=== PATIENT | female | born 1985 ===

== ENCOUNTER → 2018-02-20 | Outpatient (CLI) | payer OTHER ==
[~2018-02-20] MED LIST: DOXY-252 PO; FLUT16SP19 NS; HYDR-4309 PO; IBUP200C74 PO; IBUP800T37 PO; PROG200C16 VA; TRAM-420 PO
== END ==
LOC: LAB 11:15
PROVIDERS: ATTEND Student in an Organized Health Care Education/Training Program
DX: O09.299 Supervision of pregnancy with other poor reproductive or obstetric history, unspecified trimester (principal)
CPT/HCPCS: 36415; 84443; 84702

== ENCOUNTER → 2018-02-22 | Outpatient (CLI) | payer OTHER | LOC: LAB 10:16 | PROVIDERS: ATTEND Student in an Organized Health Care Education/Training Program | DX: Z34.91 Encounter for supervision of normal pregnancy, unspecified, first trimester (principal) | CPT/HCPCS: 36415; 84702 ==

== ENCOUNTER → 2018-02-24 | Outpatient (CLI) | payer OTHER | LOC: LAB 14:29 | PROVIDERS: ATTEND Student in an Organized Health Care Education/Training Program | DX: N96 Recurrent pregnancy loss (principal) | CPT/HCPCS: 36415; 84144 ==

== ENCOUNTER → 2018-03-03 | Outpatient (CLI) | payer OTHER ==
[~2018-03-03] MED LIST changes: -HYDR-4309 PO; +HYDR-653 PO
== END ==
LOC: LAB 14:12
PROVIDERS: ATTEND Student in an Organized Health Care Education/Training Program
DX: O20.0 Threatened abortion (principal)
CPT/HCPCS: 36415; 84702

== ENCOUNTER → 2018-03-05 | Outpatient (CLI) | payer OTHER | LOC: LAB 11:29 | PROVIDERS: ATTEND Student in an Organized Health Care Education/Training Program | DX: O20.0 Threatened abortion (principal) | CPT/HCPCS: 36415; 84702 ==

== ENCOUNTER → 2018-03-25 | Outpatient (CLI) | payer OTHER ==
[~2018-03-25] MED LIST changes: +CHOL400C10 PO; +LEVO88TA43 PO
== END ==
LOC: LAB 09:01
PROVIDERS: ATTEND Student in an Organized Health Care Education/Training Program
DX: Z02.9 Encounter for administrative examinations, unspecified (principal)

== ENCOUNTER → 2018-04-03 | Outpatient (CLI) | payer OTHER ==
[2018-04-03 17:15] LABS: PLATELET COUNT, AUTOMATED 275 K/uL (150-450)
== END ==
LOC: LAB 16:14
PROVIDERS: ATTEND Student in an Organized Health Care Education/Training Program
DX: Z34.01 Encounter for supervision of normal first pregnancy, first trimester (principal)
CPT/HCPCS: 36415; 81001; 85025; 86592; 86644; 86645; 86762; 86850; 86900; 86901; 87077; 87088; 87186; 87340; 87491; 87591

== ENCOUNTER → 2018-06-16 | Outpatient (CLI) | payer OTHER ==
[~2018-06-16] MED LIST changes: +CA C1TAB3 PO; +LEVO-3 PO; +NITR-105 PO; +PREN-148
--- NOTE | 2018-06-16 11:46 | RADIOLOGY IMAGING REPORT ---
FACILITY: [facility] [place] PATIENT NAME: Yaneth Hernandes : 1985 MR: [id number] V: [id number] EXAM DATE: ORDERING PHYSICIAN: BINU EVANS TECHNOLOGIST: Location: [facility] Patient: Yaneth Hernandes : 1985 Visit/Account:[id number] Date of Sevice: 06/16/2018 [facility] OB ANATOMICAL SURVEY HISTORY: Anatomic survey COMPARISON: None. TECHNIQUE: Transabdominal imaging was performed for assessment of the fetus and maternal pelvic s tructures. Transvaginal imaging was not performed. FINDINGS: Intrauterine gestations: One. presentation: Breech with head towards the maternal left. heart rate: 152 bpm. Amniotic fluid volume: Normal; MARI 14.36 cm; MVP 4 cm. Placenta: Posterior and fundal. Uterus: Gravid, otherwise grossly unremarkable where visualized. Maternal adnexa/ovaries: Grossly unremarkable, ovaries not visualized. Cervix: Grossly long and closed. Gestational Parameters: BPD: 4.76 cm, 67th percentile HC: 17.7 cm, 51st percentile AC: 16.33 cm, 86th percentile FL: 3.37 cm, 63rd percentile Average ultrasound age (AUA): 20 weeks/ five days Estimated age based on LMP: 20 weeks/ zero days Estimated weight (EFW): 386 grams +/- 57 grams equals the 91st percentile Anatomic Survey: Intracranial structures, 4-chamber heart, stomach, kidneys, urinary bladder, spine, 3-vessel cord and cord insertion are unremarkable. Two upper and two lower extremities visualized. IMPRESSION: Single viable fetus in breech presentation with an estimated gestational age by measurements of 20 we eks and five days. Estimated gestational age by LMP is 20 weeks and zero days Estimated weight is 386 g equivalent to the 91st percentile Report Dictated By: Minnie Bernstein MD at 06/16/2018 11:37 AM Report E-Signed By: Minnie Bernstein MD at 06/16/2018 11:41 AM WSN:[email or web address]
== END ==
LOC: RAD 09:32
PROVIDERS: ATTEND Student in an Organized Health Care Education/Training Program
DX: Z02.9 Encounter for administrative examinations, unspecified (principal)

== ENCOUNTER → 2018-07-15 | Outpatient (CLI) | payer OTHER | LOC: LAB 15:07 | PROVIDERS: ATTEND Student in an Organized Health Care Education/Training Program | DX: O99.280 Endocrine, nutritional and metabolic diseases complicating pregnancy, unspecified trimester (principal); E03.9 Hypothyroidism, unspecified | CPT/HCPCS: 36415; 84443 ==

== ENCOUNTER → 2018-08-14 | Outpatient (CLI) | payer OTHER ==
[~2018-08-14] MED LIST changes: +HYDR28.33 TOP
[2018-08-14 23:59] LABS: PLATELET COUNT, AUTOMATED 311 K/uL (150-450)
== END ==
LOC: LAB 15:23
PROVIDERS: ATTEND Advanced Practice Midwife
DX: Z34.82 Encounter for supervision of other normal pregnancy, second trimester (principal)
CPT/HCPCS: 36415; 82950; 84443; 85025

== ENCOUNTER → 2018-08-30 | Outpatient (CLI) | payer OTHER ==
[~2018-08-30] MED LIST changes: +BLOO-1511 MC; +BLOO-960 MC; +LANC-165
== END ==
LOC: LAB 08:34
PROVIDERS: ATTEND Advanced Practice Midwife
DX: O99.810 Abnormal glucose complicating pregnancy (principal)
CPT/HCPCS: 36415; 82951; 82952

== ENCOUNTER 2018-09-02 15:19 | Outpatient (RCR) | payer OTHER ==
[~2018-09-02] VITALS: Ht 170.2 cm; Wt 78.5 kg
--- NOTE | 2018-09-04 13:17 | Medical Nutrition Therapy ---
Nutrition Anthropometrics Height (Inches): 67 Weight (Pounds): 173 (31 weekspre-DM 146#) Omar Nutrition Score: Omar Nutrition Risk Score: Dietary Referral Nutrition Risk Factors: Nutrition Risk Comment: Nutrition/Food History Breakfast: fruit, granola, oat, seets/nuts or bread, egg, meat, fruit Lunch: burrito wraps with meat, cheed, veg, fuit Dinner: meat, veg, CHO Snacks: chocolat, nuts, cheees sticks Nutritional Education Nutrition Education Topic: Diabetic Nutrition Learning Readiness: Interested Teaching Methods: Discussion, Handout, Demonstration Response to Teaching: Verbalize understanding Teaching Recipient: Patient, Significant Other Nutrition Counselin/18 late entry for 16:00 @ 16:30 Pt and attended session. Pt has family hx of DM. Reviewed what is gest DM, demonstrated glucomerter and obtained BG. pt had Bg 90 @ 16:30. Reviewed diet. Pt states they try to eat healthy and follow mediterrainan diet. Reviewed Action of CHO, protein and fat. Enouraged pt to consume adequate CHO and provided meal plan of 45gm CHO/meal with 5 gm PM and hs snacks. Pt refused f/u sesson. Will provide f/u phone call for any questions or conterns. Nutrition Monitoring & Eval RD Patient Assessment Time: [address] Assessment Type: RD Education Nutritional Comment: Provided 60 minute diabetes eduction focusing on gest DM, glucometer, and nutrition Copies To Copies to: BINU EVANS DO ; JOSUE GRUBER Sep 04, 2018 13:17
[2018-09-09] MEDS ORDERED: DIPH0.5S2 IM (08:21)
[2018-09-19] MEDS ORDERED: BLOO-1511 MC (09:45)
== END 2018-10-01 12:26 | disposition home or self-care (01) ==
LOC: DIET 15:19
PROVIDERS: ATTEND Advanced Practice Midwife
DX: O24.419 Gestational diabetes mellitus in pregnancy, unspecified control (principal); Z3A.31 31 weeks gestation of pregnancy; Z71.3 Dietary counseling and surveillance
CPT/HCPCS: G0108 ×2

== ENCOUNTER → 2018-09-11 | Outpatient (CLI) | payer OTHER ==
[~2018-09-11] MED LIST changes: +DIPH0.5S2 IM
--- NOTE | 2018-09-11 08:48 | RADIOLOGY IMAGING REPORT ---
FACILITY: [facility] [place] PATIENT NAME: Yaneth Hernandes : 1985 MR: [id number] V: [id number] EXAM DATE: ORDERING PHYSICIAN: ROCHELLE POWERS TECHNOLOGIST: Location: [facility] Patient: Yaneth Hernandes : 1985 Visit/Account:[id number] Date of Sevice: 09/11/2018 Obstetric ultrasound HISTORY: Gestational diabetes. COMPARISON: 06/16/2018. FINDINGS: Standard transabdominal obstetric ultrasound. Placenta: Unremarkable fundal placenta. anatomic survey: anatomic survey was not performed. Parameters: Biparietal diameter: 8.3 cm, 33 weeks, 4 days, 74th percentile Head circumference: 30.2 cm, 33 weeks, 4 days, 40th percentile Abdominal circumference: 29.6 cm, 33 weeks, 5 days, 81st percentile Femur length: 6.7 cm, 34 weeks, 3 days, 86th percentile Composite gestational age based on Hadlock criteria is 33 weeks, 6 days for an estimated delivery chantelle e of 10/24/2018. Estimated weight is 2275 g which is at the 82nd percentile based on LMP. heart rate: 153 bpm. Amniotic fluid index (MARI): 22.8 cm. Largest pocket: 6.8 cm. IMPRESSION: Live intrauterine with no emergent findings. Report Dictated By: Josh De La Torre MD at 09/11/2018 8:40 AM Report E-Signed By: Josh De La Torre MD at 09/11/2018 8:44 AM WSN:[email or web address]
== END ==
LOC: US 07:46
PROVIDERS: ATTEND Student in an Organized Health Care Education/Training Program
DX: Z02.9 Encounter for administrative examinations, unspecified (principal)

== ENCOUNTER → 2018-10-06 | Outpatient (CLI) | payer OTHER ==
--- NOTE | 2018-10-06 14:06 | RADIOLOGY IMAGING REPORT ---
FACILITY: [facility] [place] PATIENT NAME: Yaneth Hernandes : 1985 MR: [id number] V: [id number] EXAM DATE: ORDERING PHYSICIAN: ROCHELLE POWERS TECHNOLOGIST: Location: [facility] Patient: Yaneth Hernandes : 1985 Visit/Account:[id number] Date of Sevice: 10/06/2018 EXAMINATION: Ultrasound transabdominal OB > 14 weeks with anatomic evaluation HISTORY: Gestational diabetes, size greater than dates COMPARISON: September 11, 2018 TECHNIQUE: Transabdominal imaging was performed for assessment of the fetus and maternal pelvic structures. T ransvaginal imaging was not performed. FINDINGS: Placenta: Posterior without previa. Uterus: Gravid, otherwise normal Cervix: Not evaluated Maternal Ovaries: Not visualized. Maternal and other adnexa findings: Not evaluated Intrauterine gestations: One. presentation: Cephalic heart rate: Normal and regular at 133 bpm Amniotic fluid index: 23.03 cm Largest amniotic fluid pocket: 7.4 cm Gestational Parameters: BPD: 8.77 cm 35 weeks/ three days, 42% HC: 31.71 cm 35 weeks/ five days, 14% AC: 32.38 cm 36 weeks/ three days, 69% FL: 7.61 cm 39 weeks/ zero days, 97% Average ultrasound age (AUA): 36 weeks/five days, BLAYNE 10/29/2018 Estimated gestational age by BLAYNE: 36 weeks/zero days, BLAYNE 11/03/2018 Estimated weight (EFW): 3032 grams +/- 443 grams EFW for BLAYNE: 73 percentile Anatomic Survey: Anatomic survey was not performed IMPRESSION: Single viable fetus in cephalic presentation with an estimated gestational age by measur ements of 36 weeks and five days. The estimated gestational age by LMP is 36 weeks and zero days. Estimated weight is 3032 g consistent with the 73rd percentile MARI 23.03 cm, MVP 7.4 cm Report Dictated By: Minnie Bernstein MD at 10/06/2018 1:57 PM Report E-Signed By: Minnie Bernstein MD at 10/06/2018 2:02 PM WSN:[email or web address]
== END ==
LOC: RAD 11:04
PROVIDERS: ATTEND Advanced Practice Midwife
DX: Z02.9 Encounter for administrative examinations, unspecified (principal)

== ENCOUNTER → 2018-10-08 | Outpatient (CLI) | payer OTHER | LOC: LAB 15:24 | PROVIDERS: ATTEND Obstetrics & Gynecology | DX: Z36.85 Encounter for antenatal screening for Streptococcus B (principal); O24.410 Gestational diabetes mellitus in pregnancy, diet controlled; O99.283 Endocrine, nutritional and metabolic diseases complicating pregnancy, third trimester; E03.9 Hypothyroidism, unspecified; O40.3XX0 Polyhydramnios, third trimester, not applicable or unspecified | CPT/HCPCS: 87081 ==

== ENCOUNTER → 2018-10-14 | Outpatient (CLI) | payer OTHER | LOC: LAB 15:10 | PROVIDERS: ATTEND Student in an Organized Health Care Education/Training Program | DX: O13.9 Gestational [pregnancy-induced] hypertension without significant proteinuria, unspecified trimester (principal) | CPT/HCPCS: 36415; 82040; 82247; 82310; 82374; 82435; 82565; 82570; 82947; 84075; 84132; 84155; 84156; 84295; 84450; 84460; 84520; 85027 ==

== ENCOUNTER → 2018-10-16 | Outpatient (CLI) | payer OTHER ==
--- NOTE | 2018-10-16 16:26 | RADIOLOGY IMAGING REPORT ---
FACILITY: [facility] PATIENT NAME: Yaneth Hernandes : 1985 MR: [id number] V: [id number] EXAM DATE: ORDERING PHYSICIAN: MADDISON WEISS TECHNOLOGIST: Location: [facility] Patient: Yaneth Hernandes : 1985 Visit/Account:[id number] Date of Sevice: 10/16/2018 Exam type: [facility] BIOPHYSICAL W/O NST History: MARI and BPP for polyhydramnios Comparison: October 06, 2017. Findings: There is a single fetus in cephalic presentation. The placenta is fundal and posterior. heart rate 136 bpm MARI 21.23 cm, MVP 5.86 cm The biophysical profile score was eight out of eight IMPRESSION: 1. Biophysical profile score was eight out of eight MARI measured 21.23 cm, MVP 5.86 cm Report Dictated By: Minnie Bernstein MD at 10/16/2018 4:18 PM Report E-Signed By: Minnie Bernstein MD at 10/16/2018 4:23 PM WSN:[email or web address]
== END ==
LOC: US 13:01
PROVIDERS: ATTEND Student in an Organized Health Care Education/Training Program
DX: Z02.9 Encounter for administrative examinations, unspecified (principal)

== ENCOUNTER 2018-10-20 19:25 | Inpatient (IN) | payer OTHER ==
[~2018-10-20] VITALS: Ht 170.2 cm; Wt 78.5 kg
[2018-10-20] MEDS ORDERED: OXYTOCIN 30 UNIT/NS 500 ML 500 ML IV PRN (19:26)
[2018-10-20] MEDS ORDERED: FAMOTIDINE(*) 20MG/50ML PREMIX 50 ML IVPB PRN (19:26)
[2018-10-20] MEDS ORDERED: fentaNYL CITR 100 MCG/2 ML AMP IVP PRN (19:30)
[2018-10-20] MEDS ORDERED: FLUSH 10 ML SYR IVP PRN (19:30)
[2018-10-20] MEDS ORDERED: LIDOCAINE/SOD BICARB 8.4% SYR SC PRN (19:30)
[2018-10-20] MEDS ORDERED: DINOPROSTONE 10 MG INSERT PV ONE (19:30)
[2018-10-20] MEDS ORDERED: METOCLOPRAMIDE 10 MG/2 ML SDV IVP PRN (19:30)
[2018-10-20] MEDS ORDERED: LIDOCAINE 1% LOCAL 300 MG/30ML INJ PRN (19:30)
[2018-10-20 20:00] VITALS: BP 142/86; Ht 170.2 cm; Wt 78.5 kg
[2018-10-20 20:25] LABS: PLATELET COUNT, AUTOMATED 304 K/uL (150-450)
[2018-10-20] MEDS ORDERED: ONDANSETRON 4 MG/2 ML VIAL IVP PRN (20:30)
[2018-10-20] MEDS ORDERED: ACETAMINOPHEN 325 MG TAB PO PRN (20:30)
[2018-10-20] MEDS ORDERED: CALCIUM CARBONATE 500 MG CHEW PO PRN (20:30)
[2018-10-20] MEDS ORDERED: ZOLPIDEM TARTRATE 5 MG TAB PO ONE (20:30)
[2018-10-20] MEDS ORDERED: FAMOTIDINE 10 MG/ML SDV IVP PRN (20:30)
[2018-10-20] MEDS ORDERED: diphenhydrAMINE 25 MG CAP PO PRN (20:30)
[2018-10-20] MEDS ORDERED: FAMOTIDINE 20 MG/50 ML PREMIX IVPB PRN (20:40)
[2018-10-21] MEDS: LR(*) 1000 ML BAG 1,000 ML IV PRN ×2 (00:30→11:00)
--- NOTE | 2018-10-21 06:00 | History & Physical ---
History of Present Illness Age of Patient: 33 : 3 Para or TPAL: 0 EDC per LMP: Aug 03, 2018 Estimated Gestational Age: 38.1 Chief Complaint IOL History of Present Illness Pt is a 33 y/o @ 38-1/7 wga who presents to L&D for a scheduled IOL secondary to GHTN. Pt reported yesterday in the office that she had significant blood pressures over the weekend that were >140/90. Pt received the dx of GHTN at 37-1/7 wga. Pt denies any headaches, visual changes, or RUQ pain. Good movement. History Patient's Blood Type: A Positive Rubella Status: Immune Group B Strep Screen: Negative Obstetrical History: DM GHTN Past Medical History: Non contributory Allergies: Coded Allergies: codeine (Verified Allergy, Mild, 06/28/16) latex (Verified Allergy, Mild, 06/28/16) Social History: . Abdiel use of ETOH, Tobacco or recreational drugs. Family History: FH: cancer MGM FH: diabetes mellitus FATHER AUNT M AUNT FH: heart disease FATHER FH: hypertension FATHER MOTHER Med Rec Home Meds Active Scripts Blood Sugar Diagnostic (GLUCOSE TEST STRIP) 1 Each Strip, 1 EACH MC DIRECTED, #100 STRIP 3 Refills Test BS QID- Fasting and 2 hour PP, pt may test up to 5 times daily Prov:MADDISON WEISS MD 09/19/18 Lancets (Blood Lancets) 30 Gauge Each, BOX QID, #1 3 Refills Prov:ROCHELLE POWERS [facility] 09/01/18 Blood-Glucose Meter (BLOOD GLUCOSE METER) 1 Each Each, EACH MC QID, #1 Test FSBS QID Prov:ROCHELLE POWERS [facility] 09/01/18 Hydrocortisone (Proctosol-Hc) 2.5 % Crm.pe.symone, 1 APPLIC TOP QID PRN for oain, #1 TUBE 1 Refill Prov:MADDISON WEISS MD 08/01/18 Reported Medications Vit W-Ca,Fe,FA(<1 mg) ( Formula) 1 Each Tablet 06/02/18 Ca Carb/Vit D3/Mag Ox/Zn Oxide (AKILAH MAG ZINC + D TABLET) 1 Each Tablet, 1 EACH PO 06/02/18 Levothyroxine Sodium (LEVOTHYROXINE SODIUM) 100 Mcg Tablet, 100 MCG PO QDAY, TAB 06/02/18 Review of Systems All Systems Reviewed/Normal: Yes, Except as Noted Constitutional: No Fever, No Weight Loss, No Weight Gain, No Chills, No Night Sweats, No Other Neurological: No Syncope, No Confusion, No Weakness, No Dizziness, No Slurred Speech, No Other Eyes: No Vision Change, No Loss of Vision, No Photophobia, No Other ENT: No Hearing Loss, No Sinus Congestion, No Sore Throat, No Ear Ache, No Tinnitus, No Other Cardiovascular: No Chest Pain, No Palpitations, No Orthostatic Hypotension, No Other Respiratory: No Shortness of Breath, No Cough, No Wheezing, No Other Gastrointestinal: No Nausea, No Vomiting, No Diarrhea, No Dysphagia, No Constipation, No Early Satiety, No Hematemesis, No Hematochezia, No Melena, No Abdominal Pain, No Other Genitourinary: No Dysuria, No Hematuria, No Urinary Incontinence, No Other Musculoskeletal: No Pain, No Sprain, No Strain, No Impaired Mobility, No Other Psychiatric: No Depression, No Anxiety, No Other Exam General Exam Vital Signs Vital Signs Date Time Temp Pulse Resp B/P (MAP) Pulse Ox O2 Delivery O2 Flow Rate FiO2 10/20/18 20:00 97.7 109 22 142/86 (104) 95 Room Air General Apperance: Alert/Awake/No Acute Distress Neuro: No Gross deficits Eyes: Normal Extraocular Movement & Vison ENT: Normal Cardiovascular: Regular Rate and Rhythm Respiratory: No Respiratory Distress, Clear to Auscultation Abdomen: Soft, Non-Tender, Non-Distended, Gravid - Non-Tender : Normal Musculoskeletal: No Weakness/Pain Extremities: No Cyanosis,Clubbing or Edema Integumentary: Skin Intact without Lesions or Rash Psychological: Alert & Oriented X3, Appropriate Mood & Affect Vaginal Discharge/Fluid?: Bloody Fluid (Overnight with some random clots (amnisure collected and was positive)) Cervical Dialation: 2 Cervical Effacement (%): 50 Cervical Consistency: Soft Cervical Position: Mid Station: -2 Presentation: Vertex Uterine Contractions(Q min): 3 Uterine Contraction Strength: Moderate UC Resting Tone: Soft Fetus Feeling Movement?: Yes Heart Tone Variabilty: Moderate FHT Accelerations: 15X15 FHT Decelerations: None FHT Category: I Medical Decision Making Data Points Result Diagram: 10/20/18201210/20/182012 Pre-Admit Course Medical Record Review: Yes VTE Prophylasis: Adult Deep Vein Thrombosis/Pulmonary: No 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 Proceed with IOL. Cervidil is out overnight when there was vaginal bleeding. Only 50-60 cc noted on patients pad. Amnisure was collected and was noted to be positive (this could be false positive but could also explain some of the fluid overnight). Pt to eat and then will start oxytocin to get regular contractions. Expect amniotomy of forebag later this morning. (2) 38 weeks gestation of (3) GDM (gestational diabetes mellitus), class A1 Assessment & Plan: Eat breakfast/light snack now. Fasting D-Stick before meal. D-Stick hourly. Range of normal 80-110. If above 120 start insulin infusion. If less then 80 start D5LR. (4) Hypothyroidism affecting BINU EVANS DO Oct 21, 2018 05:59
[2018-10-21] MEDS ORDERED: FENTANYL/ROPIVACAINE 100 ML BAG EPI PRN (07:35)
[2018-10-21] MEDS ORDERED: LIDOCAINE/PF 2% 200MG/10ML AMP 200 MG/10 ML AMPUL EPI PRN (07:35)
[2018-10-21] MEDS ORDERED: fentaNYL CITR 100 MCG/2 ML AMP IT PRN (07:35)
[2018-10-21] MEDS ORDERED: BUPIVACAINE 0.5% INJ 30ML VIAL EPI PRN (07:35)
[2018-10-21] MEDS ORDERED: BUPIVACAINE 0.25% MPF INJ EPI PRN (07:35)
[2018-10-21] MEDS ORDERED: ONDANSETRON 4 MG/2 ML VIAL IVP PRN (07:35)
[2018-10-21] MEDS ORDERED: LIDO/EPI 2% MPF 1:200,000 20ML EPI PRN (07:35)
--- NOTE | 2018-10-21 09:29 | Labor Progress Note ---
Labor Subjective Progress Notes Subjective Pt is starting to feel a lot of pain with contractions and and between contractions she feels pelvic pressure and pain. She is coping well with breathing and visualization. at the bedside and very supportive. Feeling Movement?: Yes Vaginal Discharge/Fluid: Bloody Show, Bloody Fluid (with some clots), Moderate Amount Labor Pain: Moderate Neurological: No Headache Eyes: No Visual Disturbances Labor Objective Vital Signs Vital Signs Date Time Temp Pulse Resp B/P (MAP) Pulse Ox O2 Delivery O2 Flow Rate FiO2 10/20/18 20:00 97.7 109 22 142/86 (104) 95 Room Air Vaginal Discharge/Fluid?: Bloody Show Cervical Dialation: 6 Cervical Effacement (%): 80 Cervical Consistency: Soft Cervical Position: Mid Station: -1 Presentation: Vertex Uterine Contractions(Q min): 2 Uterine Contraction Strength: Strong UC Resting Tone: Soft Fetus Heart Tones: 130 Heart Tone Variabilty: Moderate FHT Accelerations: Present, 15X15 FHT Decelerations: Variable FHT Category: II General Exam General Appearance: Alert/Awake/No Acute Distress ENT: Normal Neck: No Masses Cardiovascular: Normal Rhythm & Peripheral Pulses Respiratory: No Respiratory Distress, Clear to Auscultation Abdomen: Gravid - Non-Tender, RUQ Non-Tender, Active Bowel Sounds : Normal Musculoskeletal: No Weakness/Pain Extremities: No Cyanosis,Clubbing or Edema Integumentary: Skin Intact without Lesions or Rash Psychological: Alert & Oriented X3, Appropriate Mood & Affect Other Result Diagram: 10/20/18201210/20/182012 Assessment and Plan Problems: (1) Gestational hypertension Assessment & Plan: BP normotensive this am and denies JENNINGS, vision changes and RUQ pain (2) 38 weeks gestation of Status: Acute (3) GDM (gestational diabetes mellitus), class A1 Assessment & Plan: D-Stick hourly. Range of normal 80-110. If above 120 start insulin infusion. If less then 80 start D5LR. (4) Hypothyroidism affecting (5) Encounter for induction of labor Onset Date: ~ 10/20/2018 Status: Acute Assessment & Plan: LAURIE is a 33 y.o. at 38w1d wks dated by LMP and first trimester US admitted last night for cervical ripening for IOL d/t GHTN Labor state: Active labor, good cervical change since last exam. Encourage upright position changes to facilitate descent. Plan to AROM at next cervical check for labor progression well-being: Category I FHT: Continuous monitoring for Pitocin, GHTN, and A1GDM Maternal well-being: VSS, normotensive and afebrile. Membranes intact PNL: GBS neg, Type/Rh A+, rubella immune Pain Management: Plans for unmediated, but not opposed to epidural. Does not wa nt opioids. Coping well with contractions as they get more intense. good support Feed: Breast c/b: * AMA * A1GDM: * GHTN: P:C .09 and BP mild range Anticipate labor progression, re-evaluate in 2-3 hours or prn ROCHELLE POWERS CNM Oct 21, 2018 09:29
[2018-10-21] MEDS ORDERED: ePHEDrine 25 MG/5 ML DISP.SYR IVP ONE (10:44)
--- NOTE | 2018-10-21 10:58 | Labor Progress Note ---
Labor Subjective Progress Notes Subjective Pt is having a hard time coping between contractions now. She is considering an epidural, as I have recommended this with a possible OP baby. She and her have discussed and wish to proceed. Feeling Movement?: Yes Vaginal Discharge/Fluid: Bloody Show, Clear Fluid, Moderate Amount Labor Pain: Severe Neurological: No Headache Eyes: No Visual Disturbances Labor Objective Vital Signs Vital Signs Date Time Temp Pulse Resp B/P (MAP) Pulse Ox O2 Delivery O2 Flow Rate FiO2 10/20/18 20:00 97.7 109 22 142/86 (104) 95 Room Air Vaginal Discharge/Fluid?: Bloody Show, Clear Fluid, Moderate Amount Cervical Dialation: 8 Cervical Effacement (%): 90 Cervical Consistency: Soft Cervical Position: Anterior Station: 0 Presentation: Vertex Uterine Contractions(Q min): 2 Uterine Contraction Strength: Strong UC Resting Tone: Soft Fetus Heart Tones: 140 Heart Tone Variabilty: Moderate FHT Decelerations: None FHT Category: I General Exam General Appearance: Alert/Awake/No Acute Distress, Other (having difficulty coping with contraction pain) ENT: Normal Neck: No Masses Cardiovascular: Normal Rhythm & Peripheral Pulses Respiratory: No Respiratory Distress Abdomen: Gravid - Non-Tender, RUQ Non-Tender : Normal Extremities: No Cyanosis,Clubbing or Edema Integumentary: Skin Intact without Lesions or Rash Psychological: Alert & Oriented X3, Appropriate Mood & Affect Other Result Diagram: 10/20/18201210/20/182012 Assessment and Plan Problems: (1) Gestational hypertension Assessment & Plan: BP normotensive this am and denies JENNINGS, vision changes and RUQ pain (2) 38 weeks gestation of Status: Acute (3) GDM (gestational diabetes mellitus), class A1 Assessment & Plan: D-Stick hourly. Range of normal 80-110. If above 120 start insulin infusion. If less then 80 start D5LR. (4) Hypothyroidism affecting (5) Encounter for induction of labor Onset Date: ~ 10/20/2018 Status: Acute Assessment & Plan: Assessment & Plan: LAURIE is a 33 y.o. at 38w1d wks dated by LMP and first trimester US admitted last night for cervical ripening for IOL d/t GHTN Labor state: Protracted active labor d/t positioning, suspect of ROP position with minimal cervical change. Discussed the possible benefits of an epidural at this point to aide in pelvic opening and rotation. Pt desires and epidural at this time. After epidural encourage extreme side to side with peanut ball to aide in optimal rotation and descent as well as titrating Pitocin up for adequate contraction pattern. Encourage pr to rest. Pt continues to have small amount of vaginal bleeding, but CAT I FHT and adequate relaxation between contractions.Will continue to monitor well-being: Category I FHT: Continuous monitoring for Pitocin, GHTN, A1GDM, and epidural Maternal well-being: VSS, normotensive and afebrile. AROM at 0939 for moderate clear fluid PNL: GBS neg, Type/Rh A+, rubella immune Pain Management: Getting an epidural now Feed: Breast c/b: * AMA * A1GDM: * GHTN: P:C .09 and BP mild range Anticipate , re-evaluate in 2-3 hours or prn ROCHELLE POWERS CNM Oct 21, 2018 10:58
--- NOTE | 2018-10-21 11:39 | Anesthesia OB Pre-Anes Eval ---
History of Present Illness Anesthesia Start Date: Oct 21, 2018 Anesthesia Start Time: 10:47 OB Anesthesia Diagnosis: gestational hypertension, induction - medical Current Complication: gestational hypertention EDC: Nov 02, 2018 : 3 Para: 0 Vital Signs: Vital Signs 10/20/18 20:00 Temp 97.7 Pulse 109 Resp 22 B/P (MAP) 142/86 (104) Pulse Ox 95 O2 Delivery Room Air Pain Ratin Heart Tones: 132 Result Diagram: 10/20/18201210/20/182012 Height (Inches): 67.00 Weight (Pounds): 173 Past Medical History Medical History: diabetes, hypertension Surgical History: noncontributory Attended Childbirth Classes?: No Hx Anesthesia Reactions: No Hx Family Anesthesia Reaction: No Current Medications: pitocin Home Meds Active Scripts Blood Sugar Diagnostic (GLUCOSE TEST STRIP) 1 Each Strip, 1 EACH MC DIRECTED, #100 STRIP 3 Refills Test BS QID- Fasting and 2 hour PP, pt may test up to 5 times daily Prov:MADDISON WEISS MD 09/19/18 Lancets (Blood Lancets) 30 Gauge Each, BOX QID, #1 3 Refills Prov:ROCHELLE POWERS [facility] 09/01/18 Blood-Glucose Meter (BLOOD GLUCOSE METER) 1 Each Each, EACH MC QID, #1 Test FSBS QID Prov:ROCHELLE POWERS [facility] 09/01/18 Hydrocortisone (Proctosol-Hc) 2.5 % Crm.pe.symoen, 1 APPLIC TOP QID PRN for oain, #1 TUBE 1 Refill Prov:MADDISON WEISS MD 08/01/18 Reported Medications Vit W-Ca,Fe,FA(<1 mg) ( Formula) 1 Each Tablet 06/02/18 Ca Carb/Vit D3/Mag Ox/Zn Oxide (AKILAH MAG ZINC + D TABLET) 1 Each Tablet, 1 EACH PO 06/02/18 Levothyroxine Sodium (LEVOTHYROXINE SODIUM) 100 Mcg Tablet, 100 MCG PO QDAY, TAB 06/02/18 Allergies: Coded Allergies: codeine (Verified Allergy, Mild, 06/28/16) latex (Verified Allergy, Mild, 06/28/16) Anesthesia OB ROS Neurological: No migraines/headaches, No seizures, No neuropathy, No other ENT: Denies Tooth caps, Denies Loose teeth, Denies Chipped teeth, Denies Dentures, Denies Bridges, Denies Retainers, Denies Veneers, Denies Implants, Denies Tongue ring, Denies Other Pulmonary: No asthma, No smoker (pks/day/yrs), No other Airway Class: ll Cardiovascular ROS: other (Gest HTN) GI ROS: clear liquids Last Solids Date: Oct 20, 2018 Last Solids Time: 23:59 ROS: No Herpes, No STD(s), No Liver Disease, No Renal Disease, No Other Endocrine ROS: gestational diabetes Musculoskeletal ROS: No low back pain, No low back injury, No scoliosis, No other ASA Classification: 2 Assessment and Plan Anesthesia Plan: JOSUE HERNANDEZ CRNA Oct 21, 2018 11:39
--- NOTE | 2018-10-21 11:42 | Procedure Note ---
Anesthetic Placement Note Anesthesia Plan: CSE Permit for Anesthesia Signed: Yes Anesthesia Technique: Patient Sitting Anesthesia Prep: Chlorhexidine Interspace: L 3-4 Local Anesthetic: 1% Lidocaine Amount Local - cc's: 3 Anesthesia Needle: 17g Touhy/Schliff Anesthesia Attempts: 1 Loss of Resistance: Normal Saline Depth of BERNARDINO (cm): 4.5 Epidural Needle Placement: No CSF, No Blood, No Parasthesia Intrathecal Needle: 27 Gauge Pencan Cerebral Spinal Fluid: Yes, Clear Catheter Insertion (cm): 4.5 (9 cm @ skin) Catheter Type: Jacobo - Spring Wound Epidural Dressing: Tegaderm, Tape Anesthesia Tray: Lot Number ([id number]), Expiration Date (01/06), Reference Number ([id number]) Anesthesia Medications: Intrathecal Dose: mcg Fentanyl (10), mg Marcaine MPF (2.5), Time (1057) Epidural Test Dose: 1.5 Lido/Epi (1:200,000), Dose - mL (3), Time (1100), Negative Epidural Loading Dose: 0.25% Marcaine, Dose - ml (4cc), Other (Fent 90 mcg) Complications: None JOSUE LAMBERT CRNA Oct 21, 2018 11:42
[2018-10-21] MEDS ORDERED: FENTANYL/ROPIVACAINE 100ML BAG 100 ML ONE (11:53)
--- NOTE | 2018-10-21 12:10 | Procedure Note ---
Anesthesia Medications: Epidural Pump Setting: Bolus Dose - mL (8), Lockout - Minutes (20), Maintenance Rate - mL/hr (6), Maximum per Hour - mL (30) JOSUE LAMBERT CRNA Oct 21, 2018 12:10
--- NOTE | 2018-10-21 13:53 | Anesthesia Progress Note ---
Progress/Maintenance Anesthesia Note Date: Oct 21, 2018 Anesthesia Note Time: 14:50 Pain Intensity: 0 Pump: On Pump Rate (ML/HR): 6 Motor Level: Bending Knees-Bilateral Dilatation: 10 Position: Left JOSUE LAMBERT CRNA Oct 21, 2018 13:52
--- NOTE | 2018-10-21 15:14 | Labor Progress Note ---
Labor Subjective Progress Notes Subjective Pt is pushing with good effort and descent. Not feeling pain just pressure. Feeling Movement?: Yes Vaginal Discharge/Fluid: Bloody Show, Clear Fluid Labor Pain: Comfortable Neurological: No Headache Eyes: No Visual Disturbances Labor Objective Vital Signs Vital Signs Date Time Temp Pulse Resp B/P (MAP) Pulse Ox O2 Delivery O2 Flow Rate FiO2 10/20/18 20:00 97.7 109 22 142/86 (104) 95 Room Air Vaginal Discharge/Fluid?: Clear Fluid Cervical Dialation: 10 Cervical Effacement (%): 100 Cervical Consistency: Soft Cervical Position: Anterior Station: +2 Presentation: Vertex Uterine Contraction Strength: Strong UC Resting Tone: Soft Fetus Estimated Weight(grams): 3500 Heart Tones: 144 Heart Tone Variabilty: Moderate FHT Accelerations: Present FHT Decelerations: None FHT Category: I General Exam General Appearance: Alert/Awake/No Acute Distress ENT: Normal Neck: No Masses Cardiovascular: Normal Rhythm & Peripheral Pulses Respiratory: No Respiratory Distress Abdomen: Soft, Non-Tender, Non-Distended, Gravid - Non-Tender, RUQ Non-Tender Musculoskeletal: No Weakness/Pain Psychological: Alert & Oriented X3, Appropriate Mood & Affect Other Result Diagram: 10/20/18201210/20/182012 Assessment and Plan Problems: (1) Gestational hypertension Assessment & Plan: BP normotensive this am and denies JENNINGS, vision changes and RUQ pain (2) 38 weeks gestation of Status: Acute (3) GDM (gestational diabetes mellitus), class A1 Assessment & Plan: D-Stick hourly. Range of normal 80-110. If above 120 start insulin infusion. If less then 80 start D5LR. (4) Hypothyroidism affecting (5) Encounter for induction of labor Onset Date: ~ 10/20/2018 Status: Acute Assessment & Plan: Assessment & Plan: LAURIE is a 33 y.o. at 38w1d wks dated by LMP and first trimester US admitted last night for cervical ripening for IOL d/t GHTN Labor state: Second stage with great maternal effort and descent. Continue to titrate Pitocin and changing positions for pushing well-being: Category I FHT: Continuous monitoring for Pitocin, GHTN, A1GDM, and epidural Maternal well-being: VSS, normotensive and afebrile. AROM at 0939 for moderate clear fluid PNL: GBS neg, Type/Rh A+, rubella immune Pain Management: Comfortable with epidural Feed: Breast c/b: * AMA * A1GDM: BS have been good throughout labor * GHTN: P:C .09 and BP mild range Anticipate , re-evaluate in 2-3 hours or prn ROCHELLE POWERS CNM Oct 21, 2018 15:14
[2018-10-21] MEDS ORDERED: LANOLIN OINT 7 GM TUBE TP PRN (16:25)
[2018-10-21] MEDS ORDERED: HYDROCORTISONE 2.5% CR 30GM TB PR PRN (16:25)
[2018-10-21] MEDS ORDERED: BENZOCAINE 20% 60 ML BTL TP PRN (16:25)
[2018-10-21] MEDS ORDERED: INFLUENZA VIRUS VAC 0.5ML SYR IM ONLY ONE (16:25)
[2018-10-21] MEDS ORDERED: GLYCERIN/WITCH HAZEL LEAF 1 PK TP PRN (16:25)
[2018-10-21] MEDS ORDERED: MAGNESIUM HYDROXIDE* 30ML UDCP PO PRN (16:25)
--- NOTE | 2018-10-21 16:25 | OB Delivery Note ---
Delivery Note Vaginal Delivery Type: Spont. Vaginal Delivery Delivery Date: Oct 21, 2018 Delivery Time: 15:35 Estimated Gestational Age(wks): 38.1 Delivery Anesthesia: Epidural Sex: Female [place] Apgars: 1 Minute, 5 Minute Repair Needed: Laceration, Perineal, 2nd Degree Notes: Pt was admitted to the family care unit on 10/20/18 at 1940 for IOL for GHTN not in labor with Cervidil with ripening and Pitocin with AROM. Cervical exam on admission was 1.5/50/-2. She had AROM on 10/21/12 at 0939 for clear moderate fluid. Pt was GBS neg. FHR was CAT I primarily throughout first stage. Pt utilized continuous lumbar epidural primarily for pain management. Pt was completely dilated on 10/21/18 at 1346 and pt began pushing with good maternal effort shortly after. The patient pushed for approximately 2 hours. At 1534 pt had a NSVB of live female with APGARS 8/8. The head delivered spontaneously in the OA position and restituted ROBINSON with no nuchal cord. The anterior shoulder was delivered a traumatically and the posterior shoulder follo wed. Body delivered easily. Face was wiped with nose and bulb suction and then placed on the maternal abdomen. The was dried and stimulated and noted to have a spontaneous cry and spontaneous movement of all 4 extremities. Cord was clamped X 2 by STEPHANM after pulsations ceased and cut by patient's spouse. Mother was in Semirecumbent position. At 1545 the placenta and membranes delivered spontaneous and intact with a 3 vessel cord after gentle downward traction and maternal push. 30 units of Pitocin was placed in 500cc IV to firm the uterus and started immediately after placenta delivery. Upon inspection of the perineum a second degree laceration was noted and repaired using a 3.0 Vicryl under MADELINE. Hemostasis observed. EBL 350 with fundus firm with minimal bleeding. Mom and baby were left in stable condition. imitated. Patient was noted during labor to have periods of small amounts of dark red vaginal bleeding and some clots with adequate rest between contractions and FHR CAT I. Placenta did not show any signs of placental abruption. "I personally examined the patient and there are no unintended foreign objects in the vagina and all sponge, lap and needle counts were correct" Betsey Greco CNM was present for the entire second stage and delivery of baby. Dr. Cunha was my OB backup. Loading Shovel Oiler in Attendence: BETSEY Perez CNM Oct 21, 2018 16:25
[2018-10-21] MEDS: IBUPROFEN 800 MG TAB PO SCH (17:40)
--- NOTE | 2018-10-21 18:05 | Anesthesia Progress Note ---
Assessment and Plan Anesthesia Plan: CSE Anesthesia Stop Day: Oct 21, 2018 Anesthesia Stop Time: 17:45 Epidural Catheter Removal: Removed Catheter Intact, Yes, Removed by: (Luke MARIEE @ 1800) Removal Date: Oct 21, 2018 Removal Time: 18:00 JOSUE LAMBERT CRNA Oct 21, 2018 18:05
[2018-10-21 20:00] VITALS: BP 142/83
[2018-10-21] MEDS: DOCUSATE CALCIUM 240 MG CAP PO SCH (21:09)
[2018-10-22 00:43] VITALS: BP 124/95
[2018-10-22] MEDS: IBUPROFEN 800 MG TAB PO SCH ×3 (01:00→17:37)
[2018-10-22 04:00] VITALS: BP 118/79
[2018-10-22] MEDS: DOCUSATE CALCIUM 240 MG CAP PO SCH ×2 (08:48→22:03)
[2018-10-22 08:50] VITALS: BP 119/75
--- NOTE | 2018-10-22 09:47 | OB/GYN Progress Note ---
OB Subjective Progress Notes Subjective Patient is feeling well today status post normal vaginal delivery yesterday. She is voiding well without difficulty. She is working on breast-feeding, but still needs some help from the nurses today. She is taking ibuprofen with good effect. GI: POS Flatus; NEG Nausea, NEG Vomiting, NEG Bowel Movement : Voiding Well, Vaginal Bleeding, Scant Pain: Mild Neurological: No Headache Eyes: No Visual Disturbances OB Objective Physical Exam Vital Signs Date Time Temp Pulse Resp B/P (MAP) Pulse Ox O2 Delivery O2 Flow Rate FiO2 10/22/18 08:50 98.6 100 18 119/75 (90) Room Air 10/20/18 20:00 95 Intake and Output 10/22/18 07:00 Intake Total 2000 ml Output Total 2150 ml Balance -150 ml Intake IV Total 2000 ml Output Urine Total 2150 ml # Voids 2 General Appearance: Alert/Awake/No Acute Distress Neurological: No Gross deficits Eyes: Normal Extraocular Movement & Vison ENT: Normal Neck: No Masses Cardiovascular: Normal Rhythm & Peripheral Pulses Respiratory: No Respiratory Distress, Clear to Auscultation Abdomen: Soft, Non-Tender, Non-Distended, Fundus Firm, Bowel Sounds Present Incision: Other (laceration healing well with minimal swelling) : Normal Musculoskeletal: No Weakness/Pain Extremities: No Cyanosis,Clubbing or Edema Integumentary: Skin Intact without Lesions or Rash Psychological: Alert & Oriented X3, Appropriate Mood & Affect Result Diagram: 10/22/18 0644 10/20/182012 Assessment and Plan Hospital Day: 1 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 Plan: Routine Post- Care, Advance Diet, Advance Activity, Discharge Home Tomorrow Problems: (1) Gestational hypertension (2) 38 weeks gestation of Status: Resolved (3) GDM (gestational diabetes mellitus), class A1 (4) Hypothyroidism affecting Status: Acute (5) Encounter for induction of labor Onset Date: ~ 10/20/2018 Status: Resolved (6) (normal spontaneous vaginal delivery) Status: Resolved (7) Second degree laceration of perineum, delivered, current hospitalization Onset Date: ~ 10/21/2018 Assessment & Plan: Reviewed signs and symptoms of infection with the patient, encouraged use of care he bottle when urinating and patting dry. Encouraged use of Tucks pads and ice and ibuprofen for perineal discomfort. (8) care and examination immediately after delivery Onset Date: ~ 10/21/2018 Status: Acute Assessment & Plan: Patient is status post day one after a normal vaginal de livery of a female infant. She did sustain a second-degree laceration during which has no signs and symptoms of infection and is healing well with good approximation. She is voiding well and has minimal bleeding. Her fundus is firm one below the U. She states that breast-feeding is going well although she still does needs more help and will get more help today from the nurses. The plan be for her to be discharged home tomorrow and be seen in 2 weeks. ROCHELLE POWERS CNM Oct 22, 2018 09:47
[2018-10-22] MEDS ORDERED: IBUP800T37 PO (11:53)
--- NOTE | 2018-10-22 12:26 | Anesthesia Post Eval Note ---
Anesthesia Post Eval Note Vital Signs 10/20/18 10/22/18 20:00 08:50 Temp 98.6 Pulse 100 Resp 18 B/P (MAP) 119/75 (90) Pulse Ox 95 O2 Delivery Room Air Pt able to participate in Eval: Yes Cardiovascular Status: Satisfactory Respiratory Status: Satisfactory Pain Managment: Satisfactory PO Nausea/Vomiting: Satisfactory Temperature Management: Satisfactory Mental Status: Satisfactory, Alert, Oriented X3 Post-Op Hydration Status: Satisfactory, Tolerating PO Well Anesthesia Type: CSE JOSUE LAMBERT CRNA Oct 22, 2018 12:26
[2018-10-22 17:40] VITALS: BP 106/80
[2018-10-22 19:45] VITALS: BP 122/85
[2018-10-23 01:05] VITALS: BP 125/88
[2018-10-23] MEDS: IBUPROFEN 800 MG TAB PO SCH ×2 (01:33→09:00)
--- NOTE | 2018-10-23 07:33 | OB/GYN Progress Note ---
OB Subjective Progress Notes Subjective Pt feeling well with no complaints. Lochia light. Pain well controlled with ibuprofen. . PT denies JENNINGS, vision changes or abdominal pain. Ready for d/c. OB Objective Physical Exam Vital Signs Date Time Temp Pulse Resp B/P (MAP) Pulse Ox O2 Delivery O2 Flow Rate FiO2 10/23/18 01:05 97.3 94 18 125/88 (100) 94 Room Air Intake and Output 10/23/18 06:59 Intake Total 120 ml Balance 120 ml Intake Oral 120 ml # Voids 2 General Appearance: Alert/Awake/No Acute Distress Neurological: No Gross deficits Eyes: Normal Extraocular Movement & Vison ENT: Normal Neck: No Masses Cardiovascular: Normal Rhythm & Peripheral Pulses Respiratory: No Respiratory Distress, Clear to Auscultation Abdomen: Soft, Non-Tender, Non-Distended, Fundus Firm, Bowel Sounds Present Incision: Other (laceration healing well with minimal swelling) : Normal Musculoskeletal: No Weakness/Pain Extremities: No Cyanosis,Clubbing or Edema Integumentary: Skin Intact without Lesions or Rash Psychological: Alert & Oriented X3, Appropriate Mood & Affect Result Diagram: 10/22/18 0644 10/20/182012 Assessment and Plan Post Day: 2 LINE DIRECTOR 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 ) Problems: (1) Gestational hypertension Status: Resolved (2) 38 weeks gestation of Status: Resolved (3) GDM (gestational diabetes mellitus), class A1 Status: Resolved (4) Hypothyroidism affecting Status: Acute (5) Encounter for induction of labor Onset Date: ~ 10/20/2018 Status: Resolved (6) (normal spontaneous vaginal delivery) Status: Resolved (7) Second degree laceration of perineum, delivered, current hospitalization Onset Date: ~ 10/21/2018 (8) care and examination immediately after delivery Onset Date: ~ 10/21/2018 Status: Acute TOMER SOSA DO Oct 23, 2018 07:33
[2018-10-23] MEDS ORDERED: DOCU-416 PO (07:35)
--- NOTE | 2018-10-23 07:37 | OB/GYN Discharge Summary ---
Discharge Summary Reason for Hosp/Final Diag: (1) Gestational hypertension Status: Resolved (2) 38 weeks gestation of Status: Resolved (3) GDM (gestational diabetes mellitus), class A1 Status: Resolved (4) Hypothyroidism affecting Status: Acute (5) Encounter for induction of labor Onset Date: ~ 10/20/2018 Status: Resolved (6) (normal spontaneous vaginal delivery) Status: Resolved (7) Second degree laceration of perineum, delivered, current hospitalization Onset Date: ~ 10/21/2018 (8) care and examination immediately after delivery Onset Date: ~ 10/21/2018 Status: Acute [place] Vital Signs Vital Signs Date Time Temp Pulse Resp B/P (MAP) Pulse Ox O2 Delivery O2 Flow Rate FiO2 10/23/18 01:05 97.3 94 18 125/88 (100) 94 Room Air Weight (Pounds): 173 Result Diagram: 10/22/18 0644 10/20/182012 Condition: Improved Discharge: Home, Self Alf Meds Active Scripts Blood Sugar Diagnostic (GLUCOSE TEST STRIP) 1 Each Strip, 1 EACH MC DIRECTED, #100 STRIP 3 Refills Test BS QID- Fasting and 2 hour PP, pt may test up to 5 times daily Prov:MADDISON WEISS MD 09/19/18 Lancets (Blood Lancets) 30 Gauge Each, BOX QID, #1 3 Refills Prov:ROCHELLE POWERS [facility] 09/01/18 Blood-Glucose Meter (BLOOD GLUCOSE METER) 1 Each Each, EACH MC QID, #1 Test FSBS QID Prov:ROCHELLE POWERS [facility] 09/01/18 Hydrocortisone (Proctosol-Hc) 2.5 % Crm.pe.symone, 1 APPLIC TOP QID PRN for oain, #1 TUBE 1 Refill Prov:MADDISON WEISS MD 08/01/18 Reported Medications Vit W-Ca,Fe,FA(<1 mg) ( Formula) 1 Each Tablet 06/02/18 Ca Carb/Vit D3/Mag Ox/Zn Oxide (AKILAH MAG ZINC + D TABLET) 1 Each Tablet, 1 EACH PO 06/02/18 Levothyroxine Sodium (LEVOTHYROXINE SODIUM) 100 Mcg Tablet, 100 MCG PO QDAY, TAB 06/02/18 Follow up with: [facility] [phone] Follow up in: Keep scheduled appoint (1 week) Discharge Diet: As Tolerates Discharge Activity: No Heavy Lifting x 6 wks, Pelvic Rest TOMER SOSA DO Oct 23, 2018 07:37
[2018-10-23 08:10] VITALS: BP 147/78
[2018-10-23] MEDS: DOCUSATE CALCIUM 240 MG CAP PO SCH (09:00)
== END 2018-10-23 12:30 | disposition home or self-care (01) | DRG 807 ==
LOC: OB 19:25
PROVIDERS: ADMIT Student in an Organized Health Care Education/Training Program; ATTEND Student in an Organized Health Care Education/Training Program
PROC: 3E0P7VZ Introduction of Hormone into Female Reproductive, Via Natural or Artificial Opening (ICD-10-PCS; 2018-10-20)
PROC: 10E0XZZ Delivery of Products of Conception, External Approach (ICD-10-PCS; principal; 2018-10-21)
PROC: 0KQM0ZZ Repair Perineum Muscle, Open Approach (ICD-10-PCS; 2018-10-21)
PROC: 10907ZC Drainage of Amniotic Fluid, Therapeutic from Products of Conception, Via Natural or Artificial Opening (ICD-10-PCS; 2018-10-21)
DX: O13.4 Gestational [pregnancy-induced] hypertension without significant proteinuria, complicating childbirth (principal); Z37.0 Single live birth; O70.1 Second degree perineal laceration during delivery; O99.284 Endocrine, nutritional and metabolic diseases complicating childbirth; E03.9 Hypothyroidism, unspecified; O24.420 Gestational diabetes mellitus in childbirth, diet controlled; Z3A.38 38 weeks gestation of pregnancy; Z88.5 Allergy status to narcotic agent; Z91.040 Latex allergy status
CPT/HCPCS: 36415; 36416; 82040; 82247; 82310; 82374; 82435; 82565; 82570; 82947; 82948; 84075; 84112; 84132; 84155; 84156; 84295; 84450; 84460; 84520; 85025; 85027; 86703; 86850; 86900; 86901; J2590; J3010; J7120; S0020

== ENCOUNTER → 2018-11-28 | Outpatient (CLI) | payer OTHER ==
[2018-10-20 20:00] VITALS: BMI 27.1
[~2018-11-28] MED LIST changes: +DOCU-416 PO
== END ==
LOC: LAB 07:31
PROVIDERS: ATTEND Obstetrics & Gynecology
DX: O24.439 Gestational diabetes mellitus in the puerperium, unspecified control (principal); E03.9 Hypothyroidism, unspecified
CPT/HCPCS: 36415; 82947; 82950; 84443